=== PATIENT | female | born 1975 | race Caucasian/White ===

== ENCOUNTER → 2017-10-21 | Outpatient (CLI) | payer BC ==
--- NOTE | 2017-10-22 14:15 | MM ---
Reason for exam: screening (asymptomatic). Last mammogram was performed 2 years and 8 months ago. Physical Findings: A clinical breast exam by your physician is recommended on an annual basis and results should be correlated with mammographic findings. MG 3D Screening Mammo W/Cad Bilateral CC and MLO view(s) were taken. Prior study comparison: February 21, 2015, bilateral MG screening mammo w CAD. There are scattered fibroglandular densities. Finding: There is a 8 mm circumscribed round mass in the outer quadrant, anterior middle position of the right breast with round lucent area superior aspect MLO view (33/) and CC view (/). Focal asymmetry on left MLO view (). New finding since February 21, 2015. ASSESSMENT: Incomplete: need additional imaging evaluation, BI-RAD 0 RECOMMENDATION: Special view mammogram of the left breast. Ultrasound of the right breast. [facility] will attempt to contact patient to return for supplemental views and ultrasound.
== END | disposition home or self-care (01) ==
LOC: RADMAMWWP 10:41
PROVIDERS: ATTEND Obstetrics & Gynecology
DX: Z12.31 Encounter for screening mammogram for malignant neoplasm of breast (principal)
CPT/HCPCS: 77063; 77067

== ENCOUNTER → 2017-10-27 | Outpatient (CLI) | payer BC ==
--- NOTE | 2017-10-27 12:57 | MM ---
Reason for exam: additional evaluation requested from abnormal screening. Last mammogram was performed less than 1 month ago. History: Reductions of both breasts, 2017. Took hormonal contraceptives beginning at age 16. Physical Findings: Nurse Summary: 2cm nodule in the right breast at 8 o'clock (nurse toni). MG 3D Work Up W/Cad LT LM and spot compression MLO view(s) were taken of the left breast. Prior study comparison: October 21, 2017, bilateral MG 3d screening mammo w/ cad. February 21, 2015, bilateral MG screening mammo w CAD. There are scattered fibroglandular densities. New post mammoplasty changes. The inferior asymmetry on the left has the appearance of focal tissue on spot 3D and does not persist on lateral. These results were verbally communicated with the patient and result sheet given to the patient on 10/27/17. ASSESSMENT: Incomplete: need additional imaging evaluation, BI-RAD 0 RECOMMENDATION: Ultrasound. (right breast for screening abnormality) HANNAH
--- NOTE | 2017-10-27 13:02 | USB ---
Reason for exam: additional evaluation requested from abnormal screening. History: Reductions of both breasts, 2017. Took hormonal contraceptives beginning at age 16. US Breast Workup Limited RT Right limited breast ultrasound including focal area of concern, retroareolar and axilla demonstrates a 1.3 x 0.4 x 0.8cm irregular, hypoechoic lesion at 7 o'clock. These results were verbally communicated with the patient and result sheet given to the patient on 10/27/17. ASSESSMENT: Suspicious, BI-RAD 4 RECOMMENDATION: Ultrasound core biopsy of the right breast. Called Dr. Minaya with mammographic findings and has scheduled an appointment for the patient for 11/08/17 at 11:[address] Rodríguez. PRELIMINARY REPORT CALLED AND FAXED TO DR. RODRÍGUEZ ON 10/27/17.
== END | disposition home or self-care (01) ==
LOC: RADMAMWWP 10:20
PROVIDERS: ATTEND Obstetrics & Gynecology
DX: R92.8 Other abnormal and inconclusive findings on diagnostic imaging of breast (principal)
CPT/HCPCS: 77061; 77065